=== PATIENT | female | born 1955 | race Caucasian/White ===

== ENCOUNTER 2019-03-07 16:09 | Emergency (ER) | payer SELFPAY ==
[~2019-03-07] VITALS: Ht 160 cm; Wt 70.3 kg
--- NOTE | 2019-03-07 16:20 | NUR ---
PT BIBRA FROM HOME, C/O L FOOT PAIN S/P DOG BITE. PUNCTURE WOUND NOTED. NOT UTD W/ TETANUS SHOT. AWAITING MD LAROSE.
--- NOTE | 2019-03-07 16:32 | NUR ---
DR DUBOIS AT BEDSIDE FOR EVAL.
[2019-03-07] MEDS ORDERED: HYDROCODONE/APAP 5/325MG 1 EACH TABLET ONE (16:45)
[2019-03-07] MEDS ORDERED: AMOX/CLAVULANATE 875 MG TABLET ONE (16:45)
[2019-03-07] MEDS ORDERED: TDAP [DIPH/PERTUSSIS/TET] 0.5 ML VIAL IM ONE ×2 (16:46→17:00)
[2019-03-07] MEDS ORDERED: AMOX/CLAVULANATE 875 MG TABLET PO ONE (17:00)
[2019-03-07] MEDS ORDERED: HYDROCODONE/APAP 5/325MG 1 EACH TABLET PO ONE (17:00)
--- NOTE | 2019-03-07 18:00 | NUR ---
PT PROVIDED W/ WOUND CARE. Crutches dispensed. Pt instructed on proper use of crutches. Patient able to demonstrate correct use of crutches. D/C HOME IN STABLE CONDITION.
[2019-03-07 18:01] VITALS: BP 154/87
== END 2019-03-07 18:02 | disposition home or self-care (01) ==
LOC: ER 16:12
DX: S90.32XA Contusion of left foot, initial encounter (principal); I10 Essential (primary) hypertension; E78.00 Pure hypercholesterolemia, unspecified; W54.0XXA Bitten by dog, initial encounter; Y93.89 Activity, other specified; Y92.89 Other specified places as the place of occurrence of the external cause; Y99.8 Other external cause status
CPT/HCPCS: 73630-TC; 90715